=== PATIENT | male | born 2000 | race Caucasian/White ===

== ENCOUNTER 2021-06-26 21:10 | Emergency (ER) | payer OTHER ==
[~2021-06-26] VITALS: Ht 170.2 cm; Wt 88.6 kg
[2021-06-26 21:48] VITALS: BP 151/90
== END 2021-06-26 22:18 | disposition home or self-care (01) ==
LOC: EMS 21:14
DX: U07.1 COVID-19 (principal)
CPT/HCPCS: 99282; U0003; Z7502